=== PATIENT | male | born 1950 | race Caucasian/White ===

== ENCOUNTER 2018-06-24 07:15 | Day surgery (SDC) | payer OTHER ==
[2018-06-24] MEDS: TETRACAINE 0.5% UNIT-DOSE OP PRN ×2 (08:00→09:02)
[2018-06-24] MEDS: BETADINE OPTH PREP OP PRN ×2 (08:00→09:02)
[2018-06-24] MEDS: CYCLOGYL 2% OPTH OP PRN ×3 (08:01→08:11)
[2018-06-24] MEDS ORDERED: LIDOCAINE 1%/PHENYLEPHRINE 1.5% BSS (SURGERY) INTRAOCULA ONE (08:08)
[2018-06-24] MEDS ORDERED: LIDOCAINE 1% 20 ML MDV ID STA (08:08)
[2018-06-24] MEDS ORDERED: BRIMONIDINE TARTRATE 0.2% OPTH SOL OP PRN (08:08)
[2018-06-24] MEDS ORDERED: ZOFRAN 4 MG/2 ML IVP ONE (08:08)
[2018-06-24] MEDS ORDERED: BSS WITH EPINEPHRINE OP ONE (08:08)
[2018-06-24] MEDS ORDERED: DEX-MOXI-KETOR OPTH INJ 1/0.5/0.4 MG/ML IO ONE (08:08)
[2018-06-24] MEDS ORDERED: ZOFRAN 4 MG/2 ML ONE (09:14)
[2018-06-24] MEDS ORDERED: VERSED ONE (09:14)
[2018-06-24] MEDS ORDERED: SUBLIMAZE ONE (09:14)
[2018-06-24 12:15] VITALS: TEMP 98.3
[2018-06-24 16:13] VITALS: BP 121/65
== END 2018-06-24 10:10 | disposition home or self-care (01) ==
LOC: SURG 07:15
PROVIDERS: ATTEND Ophthalmology
DX: H26.9 Unspecified cataract (principal)

== ENCOUNTER 2018-07-09 06:02 | Day surgery (SDC) | payer OTHER ==
[2018-07-09] MEDS: BETADINE OPTH PREP OP PRN ×3 (06:20→06:57)
[2018-07-09] MEDS: TETRACAINE 0.5% UNIT-DOSE OP PRN ×4 (06:20→07:15)
[2018-07-09] MEDS: CYCLOGYL 2% OPTH OP PRN ×3 (06:20→06:30)
[2018-07-09] MEDS ORDERED: ZOFRAN 4 MG/2 ML IVP ONE (06:25)
[2018-07-09] MEDS ORDERED: BRIMONIDINE TARTRATE 0.2% OPTH SOL OP PRN (06:25)
[2018-07-09 06:39] VITALS: TEMP 98.7
[2018-07-09] MEDS: BSS WITH EPINEPHRINE OP ONE ×2 (06:44→07:15)
[2018-07-09] MEDS: DEX-MOXI-KETOR OPTH INJ 1/0.5/0.4 MG/ML IO ONE ×2 (06:45→07:15)
[2018-07-09] MEDS: LIDOCAINE 1%/PHENYLEPHRINE 1.5% BSS (SURGERY) INTRAOCULA ONE ×2 (06:45→07:15)
[2018-07-09] MEDS ORDERED: ZOFRAN 4 MG/2 ML ONE (07:10)
[2018-07-09] MEDS ORDERED: VERSED ONE (07:10)
[2018-07-09] MEDS ORDERED: SUBLIMAZE ONE (07:10)
[2018-07-09 14:15] VITALS: BP 132/56
== END 2018-07-09 08:05 | disposition home or self-care (01) ==
LOC: SURG 06:02
PROVIDERS: ATTEND Ophthalmology
DX: H25.12 Age-related nuclear cataract, left eye (principal)